=== PATIENT | female | born 1965 | race Caucasian/White ===

== ENCOUNTER 2016-07-29 06:56 | Inpatient (IN) | payer OTHER ==
--- NOTE | ~2016-07-29 | HP ---
Unit #: [id number] #: [id number] Patient: ROGELIO AUSTIN [id number] [place] [address] [id number] I MR#: [id number] NAME: ROGELIO AUSTIN ROOM: [facility] Age: 51 Sex: F Admission Date: 07/29/2016 : 1965 Attending Physician: Juan Carr M.D. Admitting Physician: Juan Carr M.D. Primary Care Physician: Primary Care Physician No HISTORY AND PHYSICAL HISTORY OF PRESENT ILLNESS Rogelio is a 51-year-old female admitted on 07/29/[address] [place] [address] for suicidal ideation. PAST MEDICAL HISTORY 1. Obesity 2. Arthritis 3. Fibromyalgia 4. Asthma 5. Sleep apnea 6. She is also recently diagnosed with pneumonia PAST SURGICAL HISTORY 1. Carpal tunnel release 2. Bilateral tubal ligation 3. Partial hysterectomy 4. Right knee laparoscopy from meniscal tear SOCIAL HISTORY Smokes one pack of cigarettes daily. No alcohol or illegal drug use. She is currently from her and living alone. FAMILY HISTORY Noncontributory. REVIEW OF SYSTEMS CONSTITUTIONAL: No fever or chills. HEENT: Denies any sore throat, ear pain or runny nose. CARDIOVASCULAR: Denies chest pain, irregular heart rhythm or palpitations. CHEST: Denies shortness of breath or cough. No hemoptysis. GASTROINTESTINAL: Denies nausea, vomiting, diarrhea or chronic constipation. ENDOCRINE: Denies history of increased thirst or urination. No recent significant weight loss or gain. GENITOURINARY: Denies dysuria, frequency, or hematuria. SKIN: Denies any rashes. HEMATOLOGIC: Denies history of increased bleeding or bruising. MUSCULOSKELETAL: Denies any hot, swollen joints. No generalized muscle pain. NEUROLOGIC: Denies problems with vision or speech. No frequent, severe headaches. No numbness, tingling or weakness in any extremities. Denies Unit #: [id number] #: [id number] Patient: ROGELIO AUSTIN loss of bladder or bowel control. CURRENT MEDICATIONS 1. Maxzide 2. Potassium ALLERGIES No known drug allergies. PHYSICAL EXAMINATION GENERAL: Alert, oriented, in no acute distress. VITAL SIGNS: Blood pressure 134/92, heart rate 86, respirations 16, temperature 97.3. HEIGHT: 5 foot 3 inches. WEIGHT: 262 pounds. SKIN: Warm and dry without rash or lesion. HEENT: Normocephalic. TMs not viewed. Oral and nasal passages clear. Conjunctivae clear. PERRLA. EOMs intact. NECK: Supple without lymphadenopathy or thyromegaly. HEART: Regular rate and rhythm without murmur. LUNGS: Clear. ABDOMEN: Soft, nontender, without masses or hepatosplenomegaly. : Not done. EXTREMITIES: No evidence of cyanosis, clubbing or edema. Moves all without focal deficit. NEUROLOGICAL: Grossly within normal limits. Cranial Nerves: II: Visual gee are intact. III, IV AND : Extraocular movements are intact. Pupils are equal, round and reactive to light. V: Facial sensation is grossly normal. VII: Facial movements and expression are normal. VIII: Auditory acuity grossly intact. IX, X: Uvula is midline. Phonation is normal. XI: Patient shrugs shoulders and turns head normally. XII: Tongue protrudes in the midline. Sensory and Motor Function: Sensory and motor sensation is grossly normal. Motor: moves all extremities well. Coordination: Gait is normal. Deep Tendon Reflexes: Intact. IMPRESSION Psychiatric admission. RECOMMENDATIONS Psychiatric, per psychiatrist. MEDICAL: I see no contraindications to participating in facility's activities. MEDICAL PROGNOSIS Good. MEDICAL CONDITION Stable. Dictated by... Unit #: [id number] #: [id number] Patient: NORMANROGELIO Beti Castellano TD: 07/29/2016 22:14 JOB #: [id number] HISTORY AND PHYSICAL X LARA JONES APRN X HISTORY AND PHYSICAL
--- NOTE | ~2016-07-29 | PN ---
Unit #: [id number] #: [id number] Patient: ROGELIO AUSTIN [id number] [facility] [address] [place] [address] [id number] I MR#: [id number] NAME: ROGELIO AUSTIN ROOM: [facility] Age: 51 Sex: F Admission Date: 07/29/2016 : 1965 Attending Physician: Juan Carr M.D. Admitting Physician: Juan Carr M.D. Primary Care Physician: Primary Care Physician Janessa BELLO PROGRESS NOTES DATE OF SERVICE: 07/31/2016 SUBJECTIVE Ms. Matute is a 51-year-old white female, who was seen today and chart was reviewed and the case was discussed with the staff. She has been anxious, withdrawn, and rather seclusive to herself. Meanwhile, she has been cooperative with the treatment recommendations and has been taking the medications and tolerating them fairly well. MENTAL STATUS EXAMINATION Middle-aged white female, who was casually dressed with a fair personal hygiene, appears to be in no acute distress or discomfort. She was awake and alert on interaction with intact orientation. Her mood was anxious with a congruent affect. Her speech was slow and goal directed. She denies any suicidal or homicidal ideations. Her insight and judgment remain slightly impaired. TREATMENT PLAN 1. We will continue her on her current medications and treatment protocol. We will monitor her response to the medications and make further adjustments as needed. 2. We will continue to follow up. Dictated by... Kush Stevens/jania TD: 08/01/2016 15:37 JOB #: [id number] [facility] PROGRESS NOTES X Juan Carr MD PROGRESS NOTE
--- NOTE | ~2016-07-29 | DS ---
Unit #: [id number] #: [id number] Patient: [facility] [id number] [facility] [address] [place] [address] [id number] I MR#: [id number] NAME: ROGELIO ANTUNEZ ROOM: [facility] Age: 51 Sex: F Admission Date: 07/29/2016 : 1965 Discharge Date: Attending Physician: Juan Carr M.D. Primary Care Physician: Primary Care Physician No DISCHARGE SUMMARY IDENTIFYING DATA Ms. Antunez is a 51-year-old single white female who is a resident of [place], [place] and was transferred to us from [facility] in [place], [place]. DISCHARGE DIAGNOSES Psychiatric: Major depressive disorder, recurrent, moderate, without psychotic features. Medical: Congestive heart failure, fibromyalgia, hypertension, rheumatoid arthritis, osteoarthritis. Stressors: Moderate psychosocial stressors. HISTORY OF PRESENT ILLNESS Please see initial psychiatric evaluation for details. PAST PSYCHIATRIC HISTORY Please see initial psychiatric evaluation for details. PAST MEDICAL HISTORY Please see initial psychiatric evaluation for details. HOSPITAL COURSE The patient was admitted to the adult psychiatric unit at [facility] roya Padilla and was oriented to the hospital environment. Routine p.r.n. medications were initiated and she was started back on her home medications. Her medications were adjusted and Cymbalta was increased to 60 mg b.i.d., and Wellbutrin as a second antidepressant was also added at 150 mg in the morning and she was closely monitored. She was taking the medications regularly and was tolerating them fairly well and was able to show improvement in her depressive symptoms and was denying any further suicidal ideations, intent, or plan and was not seen to be danger to self or anyone else, and was willing to continue treatment on an outpatient basis and as such, it was decided that she will be discharged home and will continue treatment on an outpatient basis. DISCHARGE MEDICATIONS Cymbalta 60 mg b.i.d. for depression; Wellbutrin XL 150 mg in the morning for depression. DISCHARGE CONDITION Stable. Unit #: [id number] #: [id number] Patient: ROGELIO ANTUNEZ PROGNOSIS Fair. Dictated by... Kush Stevens/jania TD: 08/02/2016 07:38 JOB #: [id number] DISCHARGE SUMMARY X Juan Carr MD DISCHARGE SUMMARY
--- NOTE | ~2016-07-29 | PA ---
Unit #: [id number] #: [id number] Patient: ROGELIO AUSTIN [id number] [facility] [address] [place] [address] [id number] MR#: [id number] NAME: ROGELIO AUSTIN ROOM: [facility] Age: 51 Sex: F Admission Date: 07/29/2016 : 1965 Date of Assessment: Attending Physician: Juan Carr M.D. Admitting Physician: Juan Carr M.D. Primary Care Physician: Primary Care Physician No PSYCHIATRIC ASSESSMENT DATE OF SERVICE 07/29/2016. IDENTIFYING DATA Ms. Austin is a 51-year-old single white female, who is a resident of [place], [place], and was transferred to from [facility] in [place], [place], on a voluntary basis. CHIEF COMPLAINT "Depressed since my brother last year." HISTORY OF PRESENT ILLNESS Ms. Austin is a 51-year-old white female, who was transferred to . Upon presentation, she reports that she was taken to the hospital by her daughters, who report that she has not been functioning and has been decompensating on her mood and functioning and she stated that she has not been able to get up and go to her work and just sits in the dark and lays in the dark and has not been taking care of her personal hygiene. She reports that she has been going through depression for the last 2 years, but it has gotten worse in the last 6 months, where she has been almost in a vegetative state and reports that she has not been able to shake and has not been able to function and does endorse increasing depression, anxiety, irritability, feelings of hopelessness and helplessness, poor energy level, and psychomotor retardation and has been having suicidal ideations thinking about taking all of her medication and has also considered turning gas on in the house or driving into the traffic. SUBSTANCE ABUSE HISTORY The patient denies any history of alcohol or drug abuse. PAST PSYCHIATRIC HISTORY The patient has not had any prior inpatient or outpatient psychiatric treatment and is not seeing a psychiatrist and is not taking any psychotropic medications. She reports that her family physician has given her Cymbalta primarily for fibromyalgia, but she has not received any psychiatric treatment. PAST MEDICAL HISTORY Fibromyalgia, hypertension, rheumatoid arthritis, osteoarthritis, and history of congestive heart failure. ALLERGIES No known medication allergies. Unit #: [id number] #: [id number] Patient: ROGELIO AUSTIN PERSONAL AND SOCIAL HISTORY A 51-year-old white female, who reports that she is single and employed and lives by herself and has fairly decent social support system as she has two grown daughters. MENTAL STATUS EXAMINATION Middle-aged white female, who was casually dressed with fair personal hygiene, appears to be in no acute distress or discomfort. She was awake and alert on interaction with intact orientation to time, place, and person. Her mood was anxious and depressed with a congruent affect. Her speech was slow and restricted in content. Her thought processes were disorganized with some looseness of associations and flight of ideas. Her insight and judgment remain significantly impaired. DIAGNOSTIC IMPRESSION Psychiatric: Major depressive disorder, recurrent, moderate, without psychotic features. Medical: Congestive heart failure, fibromyalgia, hypertension, rheumatoid arthritis, and osteoarthritis. Stressors: Moderate psychosocial stressors. TREATMENT PLAN 1. The patient has presented with a history of mood disorder and has been decompensating and will need inpatient hospitalization for safety and stabilization. We will start her back on her home medications. We will adjust the medications and monitor response. 2. Supportive therapy was provided to the patient. 3. Safe, structured, and nourishing environment will be provided. ESTIMATED LENGTH OF STAY 5 to 7 days. ABILITY TO HELP SELF Limited. WILLINGNESS TO HELP SELF The patient appears to be willing to help self. STRENGTHS 1. Communicative. 2. Cooperative. PROBLEMS 1. Chronic dysphoric symptoms. 2. Poor social support system. DISCHARGE CRITERIA This will be contingent upon the patient's ability to show resolution of her depression and anxiety as well as her ability to stay safe to herself, particularly after discharge from the hospital. Dictated by... Kush Stevens/jania Unit #: [id number] #: [id number] Patient: ROGELIO AUSTIN TD: 07/29/2016 14:14 JOB #: [id number] PSYCHIATRIC ASSESSMENT X Juan Carr MD PSYCHIATRIC ASSESSMENT
--- NOTE | ~2016-07-29 | PN ---
Unit #: [id number] #: [id number] Patient: ROGELIO ANTUNEZ [id number] [facility] [address] [place] [address] [id number] I MR#: [id number] NAME: ROGELIO ANTUNEZ ROOM: [facility] Age: 51 Sex: F Admission Date: 07/29/2016 : 1965 Attending Physician: Juan Carr M.D. Admitting Physician: Juan Carr M.D. Primary Care Physician: Primary Care Physician Janessa SCHROEDER NOTES DATE July 30, 2016 DISCUSSION Ms. Antunez is a 51-year-old white female, with mood disorder, who was seen today and chart was reviewed and the case was discussed with the staff. The patient has been anxious, withdrawn, and rather seclusive to herself. Meanwhile, she has been cooperative with the treatment recommendations and she has been taking the medications and tolerating them fairly well. MENTAL STATUS EXAMINATION Middle-aged white female, who was casually dressed with fair personal hygiene and appears to be in no acute distress or discomfort. She was awake and alert on interaction with intact orientation. Her mood is anxious and depressed with a congruent affect. The patient reports having suicidal ideations but denies any homicidal ideations. Her insight and judgment remain slightly impaired. TREATMENT PLAN 1. We will continue her on her current medications and treatment protocol, and will monitor her response to the medications, and make further adjustments as needed. 2. We will continue to followup. Dictated by... Kush Stevens/titus TD: 07/31/2016 10:22 JOB #: [id number] Unit #: [id number] #: [id number] Patient: ROGELIO ANTUNEZ EDDIETER PROGRESS NOTES X Juan Carr MD PROGRESS NOTE
--- NOTE | ~2016-07-29 | CO ---
Unit #: [id number] #: [id number] Patient: ROGELIO AUSTIN [id number] [place] [address] [id number] MR#: [id number] NAME: ROGELIO AUSTIN ROOM: [facility] Age: 51 Sex: F Admission Date: 07/29/2016 : 1965 Attending Physician: Juan Carr M.D. Primary Care Physician: Primary Care Physician No Consultation Date: 07/29/2016 CONSULTATION REPORT HISTORY OF PRESENT ILLNESS Kayla reports that she was started on Levaquin for pneumonia last week. She was also treated with prednisone. She has been feeling much better. Since then, no chest pain or shortness of breath. Cough has improved greatly since starting on antibiotic. She also does not have any body aches or chills. She does use oxygen at home at 2 L only at nighttime. She reports that this was started by Cardiology, who noticed that her heart rate was dropping frequently throughout the night and believes that she may have sleep apnea. She has not been using this for the past 2 weeks. She has no other complaints. PHYSICAL EXAMINATION CARDIAC: Regular rate and rhythm. No murmur, gallop, or rub. RESPIRATORY: Clear to auscultation bilaterally. ASSESSMENT AND PLAN Pneumonia. We will continue with Levaquin 500 mg daily for 3 more days and continue O2 at bedtime for possible sleep apnea. Dictated by... Maria Canchola A.P.R.N. for Kush Lemos/jania TD: 07/29/2016 15:32 JOB #: [id number] CONSULTATION REPORT X MARIA JONES APRN X CONSULTATION REPORT
--- NOTE | ~2016-07-29 | PN ---
Unit #: [id number] #: [id number] Patient: ROGELIO ANTUNEZ [id number] [facility] [address] [place] [address] [id number] MR#: [id number] NAME: ROGELIO ANTUNEZ ROOM: [facility] Age: 51 Sex: F Admission Date: 07/29/2016 : 1965 Attending Physician: Juan Carr M.D. Admitting Physician: Juan Carr M.D. Primary Care Physician: Primary Care Physician Janessa SCHROEDER NOTES DATE OF SERVICE 08/01/2016 DISCUSSION Ms. Antunez is a 51-year-old white female who was seen today. Chart was reviewed and case was discussed with the staff. She has been anxious, withdrawn though has not shown any agitation or irritability and has been compliant with the treatment recommendations as she has been taking the medications and tolerating them fairly well. MENTAL STATUS EXAMINATION Middle-aged white female who is casually dressed with fair personal hygiene, appears to be in no acute distress or discomfort. The patient was awake and alert on interaction with intact orientation. Her mood is anxious with congruent affect. She denies any suicidal or homicidal ideations. Her insight and judgment remain slightly impaired. TREATMENT PLAN 1. We will continue her on her current medications and treatment protocol. We will monitor her response to the medications and make further adjustments as needed. 2. We will continue to follow up. Dictated by... Kush Stevens/erickg TD: 08/02/2016 06:48 JOB #: [id number] [facility] PROGRESS NOTES X Juan Carr MD PROGRESS NOTE
[2016-07-30 09:26] LABS: BASOPHIL% 0.3 % (0-2.5); EOSINOPHIL# 0.3 X10e3 (0-0.7); EOSINOPHIL% 5.3 % (0.0-7.0); HEMATOCRIT 40.8 % (35.0-45.0); HEMOGLOBIN 13.5 gm/dL (12.0-16.0); LYMPHOCYTE# 2.7 X10e3 (1.0-3.5); LYMPHOCYTE% 42.6 % (17.0-45.0); MEAN CELL VOLUME 92.3 FL (83-96); MEAN CORPUSCULAR HEMOGLOBIN 30.6 PG (28-34); MEAN CORPUSCULAR HGB CONC 33.1 g/dL (30-36); MEAN PLATELET VOLUME 8.1 FL (6.5-11.5); MONOCYTE# 0.5 X10e3 (0-1.0); MONOCYTE% 7.3 % (3.0-12.0); NEUTROPHIL# 2.9 X10e3 (1.5-7.1); NEUTROPHIL% 44.5 % (40-75); PLATELET COUNT 194 X10e3 (140-420); RED BLOOD COUNT 4.42 X10e (3.90-5.30); RED CELL DISTRIBUTION WIDTH 12.7 % (11.0-15.5); WHITE BLOOD COUNT 6.4 X10e3 (4.0-10.5)
[2016-07-30 09:28] LABS: DIFF IND NO
[2016-07-30 09:37] LABS: URINE APPEARANCE CLEAR; URINE BILIRUBIN NEG (NEG); URINE BLOOD TRACE (NEG); URINE COLOR YELLOW; URINE GLUCOSE NEG (NEG); URINE KETONE NEG (NEG); URINE LEUKOCYTE ESTERASE NEG (NEG); URINE NITRATE NEG (NEG); URINE PH 7.5 (5-8); URINE PROTEIN NEG (NEG); URINE SPECIFIC GRAVITY 1.011 (1.003-1.035); URINE UROBILINOGEN 0.2 MG/DL (NEG)
[2016-07-30 09:42] LABS: URINE BACTERIA AUWI NEG (NEGATIVE); URINE SQUAMOUS EPITHELIAL CELL OCC /[HPF]; UWBCS1 AUWI 0-2 (0-5)
[2016-07-30 09:47] LABS: THYROID STIMULATING HORMONE 0.66 uIU/ml (0.34-5.60)
[2016-07-30 09:53] LABS: ALBUMIN SERUM 3.4 g/dL (3.5-5.0); ALKALINE PHOSPHATASE 62 U/L (32-92); ALT (SGPT) 20 U/L (10-40); AST (SGOT) 21 U/L (10-42); BILIRUBIN,TOTAL 0.4 mg/dL (0.2-2.0); BLOOD UREA NITROGEN 11 mg/dL (9-23); BUN/CREATININE RATIO 13.75; CALCIUM SERUM 8.7 mg/dL (8.4-10.2); CARBON DIOXIDE 29 mmol/L (22-31); CHLORIDE 104 mmol/L (100-111); CREATININE SERUM 0.8 mg/dL (0.6-1.4); GLOM FILT RATE Estimated ABOVE60 mL/min (>60); GLUCOSE FASTING 99 mg/dL (70-110); POTASSIUM 4.1 mmol/L (3.5-5.1); PROTEIN TOTAL SERUM 6.3 g/dL (6.0-8.3); SODIUM 141 mmol/L (135-145)
[2016-07-30 09:54] LABS: FREE THYROXIN (T4) 1.01 ng/dL (0.58-1.64)
[2016-07-30 10:42] LABS: AMPHETAMINE NEG (NEG); BARBITURATES NEG (NEG); BENZODIAZEPINES NEG (NEG); COCAINE NEG (NEG); MARIJUANA NEG (NEG); OPIATES POS (NEG); TRICYCLIC ANTIDEPRESSANTS NEG (NEG); U METHADONE NEG (NEG)
== END 2016-08-02 19:45 | disposition home or self-care (01) | DRG 885 ==
LOC: P2L 06:56 → POF 12:29 → P2L 12:30
PROVIDERS: Psychiatry & Neurology Psychiatry
DX: F33.1 Major depressive disorder, recurrent, moderate (principal); J18.9 Pneumonia, unspecified organism; R45.851 Suicidal ideations; I50.9 Heart failure, unspecified; M79.7 Fibromyalgia; I10 Essential (primary) hypertension; M06.9 Rheumatoid arthritis, unspecified; M19.90 Unspecified osteoarthritis, unspecified site; F41.9 Anxiety disorder, unspecified; F17.210 Nicotine dependence, cigarettes, uncomplicated
CPT/HCPCS: 80053; 80307; 81003; 84439; 84443; 85025